=== PATIENT | male | born 1955 | race Caucasian/White ===

== ENCOUNTER → 2017-05-20 | Outpatient (CLI) | payer BC ==
[2017-05-20 14:46] LABS: BASOPHIL # 0.1 K/uL (0.0-0.2); BASOPHIL % 0.7 %; EOSINOPHIL # 0.2 K/uL (0.0-0.5); EOSINOPHIL % 2.1 %; HEMATOCRIT 36.2 % (37.0-53.0); HEMOGLOBIN 12.4 g/dL (11.0-16.0); IMMATURE GRANULOCYTE % 0.1 %; LYMPHOCYTE # 2.5 K/uL (0.8-4.0); LYMPHOCYTE % 35.3 %; MCH 33.6 pg (27.0-34.0); MCHC 34.3 gm/dL (32.0-36.5); MCV 98.1 fl (83.0-98.0); MONOCYTE # 0.7 K/uL (0.0-1.0); MONOCYTE % 9.8 %; MPV 9.1 fl (9.4-12.4); NEUTROPHIL # (ANC) 3.7 K/uL (1.4-9.0); NRBC % 0 /100WBC (0-0.00); PLATELET COUNT 408 K/uL (150-450); RBC 3.69 M/uL (3.50-5.50); RDW-CV 12.7 % (11.9-14.6); WBC 7.1 K/uL (4.0-11.0)
[2017-05-20 15:01] LABS: ALBUMIN 3.9 gm/dL (3.5-5.0); ALK PHOS 59 IU/L (33-138); ALT 24 IU/L (12-78); ANION GAP 11.7 (10.0-19.0); AST 27 IU/L (10-40); BLOOD UREA NITROGEN 9 mg/dL (6-24); CALCIUM 8.5 mg/dL (8.5-10.5); CHLORIDE 105 mMol/L (96-110); CO2 27 mMol/L (22-32); CREATININE 0.6 mg/dL (0.6-1.3); ESTIMATED GFR (MDRD EQUATION) > 60; POTASSIUM 4.7 mMol/L (3.7-5.1); SODIUM 139 mMol/L (135-145); TOTAL BILIRUBIN 0.6 mg/dL (0.0-1.5); TOTAL PROTEIN 7.2 g/dL (6.0-8.4)
== END | disposition disaster alternative care site (69) ==
LOC: LNHI 14:39
PROVIDERS: Internal Medicine Cardiovascular Disease
DX: I25.10 Atherosclerotic heart disease of native coronary artery without angina pectoris (principal)